=== PATIENT | male | born 1960 ===

== ENCOUNTER → 2018-10-17 | Outpatient (CLI) | payer MEDICAID ==
[2018-10-17 17:59] LABS: BILIRUBIN,URINE NEGATIVE (NEGATIVE); UROBILINOGEN,URINE NORMAL (NEGATIVE)
[2018-10-17 18:27] LABS: APPEARANCE,URINE CLEAR (CLEAR); UA COLOR YELLOW (YELLOW)
== END | disposition home or self-care (01) ==
LOC: LAB 17:02
PROVIDERS: ATTEND Internal Medicine
DX: R53.82 Chronic fatigue, unspecified (principal); R39.15 Urgency of urination; R41.0 Disorientation, unspecified
CPT/HCPCS: 81000